=== PATIENT | female | born 1940 | race Caucasian/White ===

== ENCOUNTER 2020-11-18 04:05 | Inpatient (IN) | payer MEDICARE, OTHER ==
[~2020-11-18] VITALS: Ht 165.1 cm; Wt 81.9 kg
[~2020-11-18 04:05] MED LIST: ASPIRIN EC81 MG PO; CITALOPRAM HBR40 MG PO; FERROUS SULFAT324 MG PO; LISINOPRIL20 MG PO; METOPROLOL SUCC25 MG PO; MIRALAX17 GM PO; OMEPRAZOLE20 MG PO; PROTONIX40 MG PO; TRAZODONE HCL50 MG PO; VITAMIN D5000 UNIT PO; VYTORIN 10-401 EACH PO
[2020-11-18] MEDS ORDERED: ATORVASTATIN CA20 MG PO (10:45)
[2020-11-18] MEDS ORDERED: METOPROLOL TART25 MG PO (10:46)
[2020-11-18] MEDS ORDERED: VITAMIN D3125 MC2 PO (12:36)
[2020-11-18] MEDS ORDERED: LUBRICANT EYE15 M1 OU (12:37)
[2020-11-20] MEDS ORDERED: CEFPODOXIME PR200 MG PO (11:34)
== END 2020-11-20 12:33 | disposition home or self-care (01) | DRG 871 ==
LOC: ED 04:05 → CCU 04:06 → MS 11-19 11:45
PROVIDERS: ADMIT Internal Medicine; ATTEND Internal Medicine
DX: A40.3 Sepsis due to Streptococcus pneumoniae (principal); J13 Pneumonia due to Streptococcus pneumoniae; Z20.822 Contact with and (suspected) exposure to COVID-19; E80.6 Other disorders of bilirubin metabolism; I10 Essential (primary) hypertension; E78.5 Hyperlipidemia, unspecified; F39 Unspecified mood [affective] disorder; M81.0 Age-related osteoporosis without current pathological fracture; Z79.899 Other long term (current) drug therapy; Z87.891 Personal history of nicotine dependence; Z86.018 Personal history of other benign neoplasm
CPT/HCPCS: 36415; 51701; 71045; 71046; 80053; 80076; 81001; 83605; 85025; 87502; 99285-25; C9803; J0456; J0696; J1650; J7030; J7060; J7121; U0003

== ENCOUNTER 2025-03-03 17:52 | Emergency (ER) | payer MEDICARE, OTHER ==
[~2025-03-03] VITALS: Ht 165.1 cm; Wt 58.0 kg
[~2025-03-03 17:52] MED LIST changes: +ATORVASTATIN CA20 MG PO; +CEFPODOXIME PR200 MG PO; +LUBRICANT EYE15 M1 OU; +METOPROLOL TART25 MG PO; +VITAMIN D3125 MC2 PO
[2025-03-03 18:59] LABS: BASOPHILS 0.6 % (0.1-1.2); EOSINOPHILS 2.3 % (0.7-5.8); HEMATOCRIT 35.7 % (34.1-44.9); HEMOGLOBIN 11.7 g/dL (11.2-15.7); LYMPHOCYTES 16.9 % (19.3-51.7); MCH 31.2 PG (25.6-32.2); MCHC 32.8 g/dL (32.2-35.5); MCV 95.2 fL (79.4-94.8); MONOCYTES 10.2 % (4.7-12.5); NEUTROPHILS 69.4 % (34.0-71.1); PLATELET COUNT 259 K/uL (182-369); RBC 3.75 M/uL (3.93-5.22)
[2025-03-03 19:10] LABS: INR 1.01 (0.80-1.30); PROTIME 12.9 Sec (11.2-14.2)
[2025-03-03 19:28] LABS: ALBUMIN 3.6 g/dL (3.4-5.0); ALBUMIN/GLOBULIN RATIO 1.38 (1.1-2.4); ALCOHOL, MEDICAL <3 ng/dL (<3); ALKALINE PHOSPHATASE 57 U/L (46-116); ALT (SGPT) 28 U/L (14-59); ANION GAP 10.6 (7-21); AST (SGOT) 20 U/L (15-37); BILIRUBIN, TOTAL 0.6 mg/dL (0.2-1.0); BUN/CREATININE RATIO 26.76 (6.0-28.6); CARBON DIOXIDE 31 mmol/L (21-32); CHLORIDE 103 mmol/L (98-107); CREATININE, SERUM 0.71 mg/dL (0.55-1.02); GLOMERULAR FILTRATION RATE,EST 83 mL/min (>60); POTASSIUM 3.6 mmol/L (3.5-5.1); PROTEIN, TOTAL 6.2 g/dL (6.4-8.2); UREA NITROGEN 19 mg/dL (7-18)
[2025-03-03 20:36] VITALS: BP 146/66
== END 2025-03-03 20:37 | disposition home or self-care (01) ==
LOC: ED 17:52
PROVIDERS: Emergency Medicine
DX: S01.01XA Laceration without foreign body of scalp, initial encounter (principal); R10.2 Pelvic and perineal pain; I10 Essential (primary) hypertension; W18.30XA Fall on same level, unspecified, initial encounter; Z79.899 Other long term (current) drug therapy; Z87.891 Personal history of nicotine dependence
CPT/HCPCS: 12002; 36415; 70450; 71045; 72125; 72170; 80053; 80307; 85025; 85610; 99284-25; G0480